=== PATIENT | male | born 1990 | race Caucasian/White ===

== ENCOUNTER 2016-12-12 02:13 | Emergency (ER) | payer BC, MEDICAID ==
[2016-12-12] MEDS ORDERED: NS 0.9% 1000 ML* 1,000 ML IV ONE (02:21)
[2016-12-12] MEDS ORDERED: Lidocaine 2% VISCOUS* 15 ML UDC PO ONE (04:32)
[2016-12-12] MEDS ORDERED: Al Hydrox/Mg Hydrox/Simet LIQ* 30 ML UDC PO ONE (04:32)
[2016-12-12 04:44] LABS: Hematocrit 38 % (42-52); Hemoglobin 13.1 g/dl (14.0-18.0); Mean Corpuscular HGB Conc 35 g/dl (31-36); Mean Corpuscular Hemoglobin 30 pg (27-31); Mean Corpuscular Volume 86 fL (80-94); Mean Platelet Volume 8 um3 (7.4-10.4); Red Blood Count 4.36 10^6/ul (4.0-5.4); Red Cell Distribution Width 13 % (10.5-15)
[2016-12-12 04:56] LABS: ALT 16 U/L (7-52); AST 15 U/L (13-39); Albumin 4.1 g/dL (3.2-5.2); Alkaline Phosphatase 52 U/L (34-104); Anion Gap 7 mmol/L (2-11); BUN/Creatinine Ratio 15.1 (8-20); Blood Urea Nitrogen 11 mg/dL (6-24); C Reactive Protein < 1.00 mg/L (< 5.00); CO2 Carbon Dioxide 27 mmol/L (22-32); Calcium 9.2 mg/dL (8.6-10.3); Chloride 104 mmol/L (101-111); EGFR African American 168.4 (>60); EGFR Non-African American 130.9 (>60); Globulin 2.6 g/dL (2-4); Glucose 108 mg/dL (70-100); Lipase 13 U/L (11.0-82.0); Magnesium 2.3 mg/dL (1.9-2.7); Potassium 3.6 mmol/L (3.5-5.0); Sodium 138 mmol/L (133-145); Total Protein 6.7 g/dL (6.4-8.9)
--- NOTE | 2016-12-12 05:03 | ED ---
Mohsen Fernandez Billy, scribed for Jacques Noel MD on 12/12/16 at 0336 . Abdominal Pain/Male - HPI Summary HPI Summary: Patient is a 26 year-old male coming to [facility] presenting with intermittent diffuse abdominal pain for the last several hours. Severity 4/10. Nothing was taken TOURIST ESCORT, nothing makes his symptoms better or worse. He feels bloated; denies any N/V/D. - History of Current Complaint Chief Complaint: EDAbdPain Stated Complaint: ABD PAIN Time Seen by Provider: 12/12/16 02:14 Hx Obtained From: Patient Onset/Duration: Gradual Onset, Lasting Hours, Still Present Timing: Intermittent Severity Initially: Moderate Severity Currently: Moderate Pain Intensity: 4 Pain Scale Used: 0-10 Numeric Location: Diffuse Radiates: No Aggravating Factor(s): Nothing Alleviating Factor(s): Nothing Associated Signs And Symptoms: Positive: Other - bloating. Negative: Nausea, Vomiting, Diarrhea - Allergies/Home Medications Allergies/Adverse Reactions: Allergies Allergy/AdvReac Type Severity Reaction Status Date / Time Cephalosporins Allergy Severe Hives Verified 10/29/14 15:22 PMH/Surg Hx/FS Hx/Imm Hx Endocrine/Hematology History: Denies: Hx Anticoagulant Therapy, Hx Diabetes, Hx Thyroid Disease Cardiovascular History: Denies: Hx Hypertension, Hx Pacemaker/ICD Respiratory History: Denies: Hx Asthma, Hx Chronic Obstructive Pulmonary Disease (COPD) History: Denies: Hx Renal Disease Sensory History: Reports: Hx Contacts or Glasses Denies: Hx Hearing Problem Opthamlomology History: Reports: Hx Contacts or Glasses Neurological History: Reports: Hx Seizures Denies: Hx Dementia Psychiatric History: Reports: Hx Eating Disorder - 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, Hx Inpatient Treatment, Hx Community Mental Health Tx, Hx Schizophrenia, Hx Substance Abuse - MARIJUANA Denies: Hx of Violent Episodes Against Others - Surgical History Surgery Procedure, Year, and Place: wisdom teeth extracted (Jr-Sr year of high school) - Immunization History Date of Tetanus Vaccine: PT STATES UP TO DATE Date of Influenza Vaccine: NONE Infectious Disease History: No Infectious Disease History: Denies: Hx Hepatitis, Hx Human Immunodeficiency Virus (HIV), Traveled Outside the [place] in Last 30 Days - Family History Family History: FHx of schizophrenia - Social History Alcohol Use: None Substance Use Type: Reports: Marijuana Substance Use Comment - Amount & Last Used: occasionally Smoking Status (MU): Never Smoked Tobacco Review of Systems Negative: Fever Positive: Abdominal Pain, Other - bloating. Negative: Vomiting, Diarrhea, Nausea All Other Systems Reviewed And Are Negative: Yes Physical Exam Triage Information Reviewed: Yes Vital Signs On Initial Exam: Initial Vitals Temp Pulse Resp BP Pulse Ox 99 F 112 18 134/72 98 12/12/16 02:15 12/12/16 02:15 12/12/16 02:15 12/12/16 02:15 12/12/16 02:15 Vital Signs Reviewed: Yes Appearance: Positive: Well-Appearing, No Pain Distress Skin: Positive: Warm Head/Face: Positive: Normal Head/Face Inspection Eyes: Positive: KRYSTLE ENT: Positive: Hearing grossly normal Respiratory/Lung Sounds: Positive: Breath Sounds Present Cardiovascular: Positive: RRR Abdomen Description: Positive: Nontender, Soft Bowel Sounds: Positive: Present Neurological: Positive: Sensory/Motor Intact, Alert, Oriented to Person Place, Time Psychiatric: Positive: Affect/Mood Appropriate Diagnostics - Vital Signs Vital Signs Temp Pulse Resp BP Pulse Ox 12/12/16 02:15 99 F 112 18 134/72 98 - Laboratory Lab Results: Lab Results 12/12/16 12/12/16 12/12/16 Range/Units 04:30 04:30 04:30 WBC 7.0 (3.5-10.8) 10^3/ul RBC 4.36 (4.0-5.4) 10^6/ul Hgb 13.1 L (14.0-18.0) g/dl Hct 38 L (42-52) % MCV 86 (80-94) fL MCH 30 (27-31) pg MCHC 35 (31-36) g/dl RDW 13 (10.5-15) % Plt Count 160 (150-450) 10^3/ul MPV 8 (7.4-10.4) um3 Neut % (Auto) 72.9 (38-83) % Lymph % (Auto) 17.8 L (25-47) % [place] % (Auto) 9.2 H (1-9) % Eos % (Auto) 0 (0-6) % Baso % (Auto) 0.1 (0-2) % Absolute Neuts (auto) 5.1 (1.5-7.7) 10^3/ul Absolute Lymphs (auto) 1.2 (1.0-4.8) 10^3/ul Absolute Monos (auto) 0.6 (0-0.8) 10^3/ul Absolute Eos (auto) 0 (0-0.6) 10^3/ul Absolute Basos (auto) 0 (0-0.2) 10^3/ul Absolute Nucleated RBC 0 10^3/ul Nucleated RBC % 0 Sodium 138 (133-145) mmol/L Potassium 3.6 (3.5-5.0) mmol/L Chloride 104 (101-111) mmol/L Carbon Dioxide 27 (22-32) mmol/L Anion Gap 7 (2-11) mmol/L BUN 11 (6-24) mg/dL Creatinine 0.73 (0.67-1.17) mg/dL Est GFR ( Amer) 168.4 (>60) Est GFR (Non-Af Amer) 130.9 (>60) BUN/Creatinine Ratio 15.1 (8-20) Glucose 108 H (70-100) mg/dL Lactic Acid 1.5 (0.5-2.0) mmol/L Calcium 9.2 (8.6-10.3) mg/dL Magnesium 2.3 (1.9-2.7) mg/dL Total Bilirubin 0.40 (0.2-1.0) mg/dL AST 15 (13-39) U/L ALT 16 (7-52) U/L Alkaline Phosphatase 52 (34-104) U/L C-Reactive Protein < 1.00 (< 5.00) mg/L Total Protein 6.7 (6.4-8.9) g/dL Albumin 4.1 (3.2-5.2) g/dL Globulin 2.6 (2-4) g/dL Albumin/Globulin Ratio 1.6 (1-3) Lipase 13 (11.0-82.0) U/L Result Diagrams: 12/12/16 04:30 12/12/16 04:30 Lab Statement: Any lab studies that have been ordered have been reviewed, and results considered in the medical decision making process. Re-Evaluation - Re-Evaluation First Eval Change: Improved Abdominal Pain Fem Course/Dx - Diagnoses Provider Diagnoses: Abdominal pain Discharge - Discharge Plan Condition: Stable Disposition: HOME Prescriptions: Famotidine TAB* [Pepcid 20 MG TAB*] 20 mg PO BID #20 tab Patient Education Materials: Abdominal Pain (ED) Referrals: Prashanth Casper MD [Primary Care Provider] - The documentation as recorded by the jordanibMohsen huang Billy accurately reflects the service I personally performed and the decisions made by me, Jacques Noel MD.
[2016-12-12 05:55] VITALS: BP 116/72
== END 2016-12-12 05:53 | disposition home or self-care (01) ==
LOC: ED 02:13
DX: R10.9 Unspecified abdominal pain (principal); R14.0 Abdominal distension (gaseous)
CPT/HCPCS: 36415; 80053; 83605; 83690; 83735; 85025; 86140; 99282; A9270-GY

== ENCOUNTER 2017-04-01 22:16 | Emergency (ER) | payer BC, MEDICAID ==
--- NOTE | 2017-04-02 00:44 | ED ---
Laceration/Wound HPI - HPI Summary HPI Summary: 27M presents with right index finger laceration today. He was opening a can of dog food when he cut himself on the can. His tetanus is up to date. He has full ROM of his finger. He denies any numbness or tingling. Bleeding is controlled. - History of Current Complaint Stated Complaint: FINGER LAC Time Seen by Provider: 04/01/17 23:53 Pain Intensity: 0 - Additional Pertinent History Primary Care Physician: ELKIN - Allergy/Home Medications Allergies/Adverse Reactions: Allergies Allergy/AdvReac Type Severity Reaction Status Date / Time Cephalosporins Allergy Severe Hives Verified 04/02/17 00:16 PMH/Surg Hx/FS Hx/Imm Hx Endocrine/Hematology History: Denies: Hx Anticoagulant Therapy, Hx Diabetes, Hx Thyroid Disease Cardiovascular History: Denies: Hx Hypertension, Hx Pacemaker/ICD Respiratory History: Denies: Hx Asthma, Hx Chronic Obstructive Pulmonary Disease (COPD) History: Denies: Hx Renal Disease Sensory History: Reports: Hx Contacts or Glasses Denies: Hx Hearing Problem Opthamlomology History: Reports: Hx Contacts or Glasses Neurological History: Reports: Hx Seizures Denies: Hx Dementia Psychiatric History: Reports: Hx Eating Disorder - 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, Hx Inpatient Treatment, Hx Community Mental Health Tx, Hx Schizophrenia, Hx Substance Abuse - MARIJUANA Denies: Hx of Violent Episodes Against Others - Surgical History Surgery Procedure, Year, and Place: wisdom teeth extracted (Jr-Sr year of high school) - Immunization History Date of Tetanus Vaccine: unknown, within past 5 years Date of Influenza Vaccine: NONE Infectious Disease History: No Infectious Disease History: Denies: Hx Hepatitis, Hx Human Immunodeficiency Virus (HIV), Traveled Outside the [place] in Last 30 Days - Family History Known Family History: Positive: None Family History: FHx of schizophrenia - Social History Alcohol Use: None Substance Use Type: Reports: None Substance Use Comment - Amount & Last Used: occasionally Smoking Status (MU): Never Smoked Tobacco Review of Systems Negative: Fever Negative: Chest Pain Negative: Shortness Of Breath Positive: Other - laceration right index finger All Other Systems Reviewed And Are Negative: Yes Physical Exam Triage Information Reviewed: Yes Vital Signs On Initial Exam: Initial Vitals Temp Pulse Resp BP Pulse Ox 99.9 F 93 20 137/71 100 04/01/17 22:24 04/01/17 22:24 04/01/17 22:24 04/01/17 22:24 04/01/17 22:24 Vital Signs Reviewed: Yes Appearance: Positive: Well-Appearing Skin: Positive: Warm, Dry, Other - 1 cm laceration near PIP of right index finger Head/Face: Positive: Normal Head/Face Inspection Eyes: Positive: Normal, Conjunctiva Clear Respiratory/Lung Sounds: Positive: Clear to Auscultation, Breath Sounds Present Cardiovascular: Positive: Normal, RRR Musculoskeletal: Positive: Strength/ROM Intact - of right index finger, Other - good pulses, capillary refill <2 secs Procedures - Splinting Location: finger Pre-Made Type: metal Splint: finger splint Pre-Proc Neuro Vasc Exam: normal - Laceration/Wound Repair 1 Location: Other - right index finger Description: Linear Anesthesia: Digital, 1.0% Length, Depth and Shape: 1 cm Irrigated w/ Saline (ccs): 100 Closure: Single Layer Suture Type: Prolene - 4-0 Number of Sutures: 1 Diagnostics - Vital Signs Vital Signs Temp Pulse Resp BP Pulse Ox 04/02/17 00:15 99.6 F 89 16 124/71 99 04/01/17 22:24 99.9 F 93 20 137/71 100 - Laboratory Lab Statement: Any lab studies that have been ordered have been reviewed, and results considered in the medical decision making process. Laceration Repair Course/Dx - Course Course Of Treatment: 27M presents with right index finger laceration today. tetanus up todate. laceration is only 1 cm and is superficial so offered to glue it but patient wanted a stich. placed 1 suture and placed in finger splint due to location. patient understands and agrees with plan - Differential Dx Differental Diagnoses: Abrasion, Avulsion, Laceration - Clinical Impression Provider Diagnoses: Laceration of right index finger Discharge - Discharge Plan Condition: Good Disposition: HOME Patient Education Materials: Care For Your Stitches (ED) Referrals: Prashanth Casper MD [Primary Care Provider] - Additional Instructions: Keep area in splint for 2-4 days Keep area clean and dry for 48 hours Take Tylenol or ibuprofen for pain every 6 hours Return to ED or primary for suture removal in 10-14 days Return to ED if develop signs of infection such as fever, spreading redness, or pus formation
[2017-04-02 01:40] VITALS: BP 131/83
== END 2017-04-02 01:12 | disposition home or self-care (01) ==
LOC: ED 22:16
DX: S61.210A Laceration without foreign body of right index finger without damage to nail, initial encounter (principal); W26.8XXA Contact with other sharp object(s), not elsewhere classified, initial encounter; Y93.9 Activity, unspecified; Y92.9 Unspecified place or not applicable
CPT/HCPCS: 12001; 99282

== ENCOUNTER 2018-05-17 01:33 | Emergency (ER) | payer BC, MEDICAID ==
[2018-05-17] MEDS ORDERED: Clindamycin CAP* 150 MG PO ONE (02:55)
--- NOTE | 2018-05-17 03:03 | ED ---
Skin Complaint - HPI Summary HPI Summary: This is scribe Sreedhar Waterman documenting for attending Dr. Oliva Martinez MD. A 28 y/o male presents to ED c/o indentation on back. As per triage, "28y/o male PMH schizophrenia, seizures in ER fro " indentation on my back and I want to make sure I don't have a flesh eating virus" Pt is extremely anxious and speech is pressured". The patient noted that the indentation use to burn and he had a cyst removed in that area a few months ago. There is mild pain associated with the indentation. - History of Current Complaint Chief Complaint: EDRashSkinAbscess Time Seen by Provider: 05/17/18 02:12 Stated Complaint: GENERAL Hx Obtained From: Patient Onset/Duration: Started Days Ago Timing: Constant Onset Severity: Mild Current Severity: Mild Pain Intensity: 1 Pain Scale Used: 0-10 Numeric Skin Location: Other: - BACK Aggravating Symptom(s): Nothing Alleviating Symptom(s): Nothing Related History: Other: - Cyst removed in that area a couple months ago. - Additional Pertinent History Primary Care Physician: [id number] - Allergy/Home Medications Allergies/Adverse Reactions: Allergies Allergy/AdvReac Type Severity Reaction Status Date / Time MS Cephalosporins Allergy Severe Hives Verified 04/02/17 00:16 [Cephalosporins] PMH/Surg Hx/FS Hx/Imm Hx Endocrine/Hematology History: Denies: Hx Anticoagulant Therapy, Hx Diabetes, Hx Thyroid Disease Cardiovascular History: Denies: Hx Hypertension, Hx Pacemaker/ICD Respiratory History: Denies: Hx Asthma, Hx Chronic Obstructive Pulmonary Disease (COPD) History: Denies: Hx Renal Disease Sensory History: Reports: Hx Contacts or Glasses Denies: Hx Hearing Problem Opthamlomology History: Reports: Hx Contacts or Glasses Neurological History: Reports: Hx Seizures Denies: Hx Dementia Psychiatric History: Reports: Hx Eating Disorder - 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, Hx Inpatient Treatment, Hx Community Mental Health Tx, Hx Schizophrenia, Hx Substance Abuse - MARIJUANA Denies: Hx of Violent Episodes Against Others - Surgical History Surgery Procedure, Year, and Place: wisdom teeth extracted (Jr-Sr year of high school) - Immunization History Date of Tetanus Vaccine: unknown, within past 5 years Date of Influenza Vaccine: NONE Infectious Disease History: No Infectious Disease History: Denies: Hx Hepatitis, Hx Human Immunodeficiency Virus (HIV), Traveled Outside the [place] in Last 30 Days - Family History Known Family History: Negative: Diabetes Family History: FHx of schizophrenia - Social History Alcohol Use: None Substance Use Type: Reports: None Substance Use Comment - Amount & Last Used: occasionally Smoking Status (MU): Never Smoked Tobacco Review of Systems Negative: Fever Positive: Other - POSITIVE: Indentation of skin on back All Other Systems Reviewed And Are Negative: Yes Physical Exam - Summary Physical Exam Summary: VITAL SIGNS: Reviewed. GENERAL: Patient is a well-developed and nourished MALE who is lying comfortable in the stretcher. Patient is not in any acute respiratory distress. HEAD AND FACE: No signs of trauma. No ecchymosis, hematomas or skull depressions. No sinus tenderness. EYES: PERRLA, EOMI x 2, No injected conjunctiva, no nystagmus. EARS: Hearing grossly intact. Ear canals and tympanic membranes are within normal limits. MOUTH: Oropharynx within normal limits. NECK: Supple, trachea is midline, no adenopathy, no JVD, no carotid bruit, no c- spine tenderness, neck with full ROM. CHEST: Symmetric, no tenderness at palpation LUNGS: Clear to auscultation bilaterally. No wheezing or crackles. CVS: Regular rate and rhythm, S1 and S2 present, no murmurs or gallops appreciated. ABDOMEN: Soft, non-tender. No signs of distention. No rebound no guarding, and no masses palpated. Bowel sounds are normal. EXTREMITIES: FROM in all major joints, no edema, no cyanosis or clubbing. NEURO: Alert and oriented x 3. No acute neurological deficits. Speech is normal and follows commands. SKIN: Dry and warm. Small red tender area in middle of back. Consistent with cellulitis. Triage Information Reviewed: Yes Vital Signs On Initial Exam: Initial Vitals Temp Pulse Resp BP Pulse Ox 97.9 F 73 16 139/78 97 05/17/18 01:45 05/17/18 01:45 05/17/18 01:45 05/17/18 01:45 05/17/18 01:45 Vital Signs Reviewed: Yes Diagnostics - Vital Signs Vital Signs Temp Pulse Resp BP Pulse Ox 05/17/18 01:45 97.9 F 73 16 139/78 97 - Laboratory Lab Statement: Any lab studies that have been ordered have been reviewed, and results considered in the medical decision making process. Course/Dx - Course Course Of Treatment: A 28 y/o male presents to ED c/o indentation on back. As per triage, "28y/o male PMH schizophrenia, seizures in ER fro " indentation on my back and I want to make sure I don't have a flesh eating virus" Pt is extremely anxious and speech is pressured". The patient noted that the indentation use to burn and he had a cyst removed in that area a few months ago. There is mild pain associated with the indentation. No laboratory scans were done. In the ED course, the patient recieved Cleocin. Pt will be discharged with a diagnosis of cellulitis. Pt is to follow up with PCP in 1-2 days and surgery in 1 week. Pt is agreeable with this plan. - Diagnoses Provider Diagnoses: Cellulitis Discharge - Sign-Out/Discharge Documenting (check all that apply): Patient Departure - DISCHARGE - Discharge Plan Condition: Stable Disposition: HOME Prescriptions: Clindamycin Cap(NF) [Clindamycin Cap 300 mg Cap(NF)] 300 mg PO Q6H #30 cap Patient Education Materials: Cellulitis (ED) Referrals: Prashanth Casper MD [Primary Care Provider] - Lamin Cordero MD [Medical Doctor] - 1 Week Additional Instructions: FOLLOW UP WITH PRIMARY CARE PHYSICIAN IN 1-2 DAYS. FOLLOW UP WITH SURGERY IN 1 WEEK. RETURN TO ED FOR ANY NEW OR WORSENING SYMPTOMS.
[2018-05-17 03:23] VITALS: BP 154/84
== END 2018-05-17 03:21 | disposition home or self-care (01) ==
LOC: ED 01:33
DX: L03.312 Cellulitis of back [any part except buttock and flank] (principal)
CPT/HCPCS: 99282; A9270-GY